=== PATIENT | male | born 1975 | race Caucasian/White ===

== ENCOUNTER 2019-12-19 06:53 | Emergency (ER) | payer OTHER ==
[~2019-12-19] VITALS: Ht 172.7 cm; Wt 77.1 kg
[2019-12-19 07:02] VITALS: Ht 172.7 cm; Wt 77.1 kg
[2019-12-19 08:32] LABS: AMPHETAMINE QUAL UR NONE DETECTED (See below)
[2019-12-19 08:48] LABS: BASOPHIL % 1.2 % (0-2); PLATELET COUNT 203 x10^3mcL (130-400); RED CELL DISTRIBUTION WIDTH 14.4 % (11.5-14.5)
[2019-12-19 08:57] LABS: CALCIUM 8.6 mg/dL (8.5-10.1); CARBON DIOXIDE 29.6 mmol/L (21-32); CHLORIDE SERUM 101 mmol/L (98-107); GFR1 > 60 mL/min; GLUCOSE SERUM 91 mg/dL (74-106); POTASSIUM SERUM 3.7 mmol/L (3.5-5.1); SODIUM SERUM 137 mmol/L (136-145)
[2019-12-19 09:02] LABS: ALBUMIN 3.7 g/dL (3.4-5.0); ALKALINE PHOSPHATASE 42 U/L (46-116); ALT/SGPT 43 U/L (16-63); AST/SGOT 24 U/L (15-37); BILIRUBIN TOTAL 0.32 mg/dL (0.20-1.00); TOTAL PROTEIN, SERUM 7.2 g/dL (6.4-8.2)
[2019-12-19 09:31] VITALS: BP 140/89
== END 2019-12-19 09:31 | disposition home or self-care (01) ==
LOC: ED 06:53
PROVIDERS: Specialist
DX: E86.0 Dehydration (principal); I10 Essential (primary) hypertension; Z13.9 Encounter for screening, unspecified
CPT/HCPCS: G0480; Q0092